=== PATIENT | female | born 1990 | race Two or more races ===

== ENCOUNTER 2020-12-03 08:54 | Day surgery (SDC) | payer OTHER ==
[~2020-12-03] VITALS: Ht 167.6 cm; Wt 90.7 kg
[2020-12-03] MEDS ORDERED: SINGULAIR 10MG10 MG PO (09:07)
== END 2020-12-04 09:00 | disposition home or self-care (01) ==
LOC: ER 08:54 → CIR.AMB 21:00
PROVIDERS: ATTEND Obstetrics & Gynecology
DX: N84.0 Polyp of corpus uteri (principal); Z20.822 Contact with and (suspected) exposure to COVID-19